=== PATIENT | female | born 1960 | race Two or more races ===

== ENCOUNTER → 2017-09-06 | Outpatient (CLI) | payer OTHER | END | disposition home or self-care (01) | LOC: HKI 13:57 | DX: M17.11 Unilateral primary osteoarthritis, right knee (principal) | CPT/HCPCS: 73564; 73564-RT ==

== ENCOUNTER → 2017-10-04 | Outpatient (CLI) | payer OTHER | END | disposition home or self-care (01) | LOC: HKI 14:54 | DX: M19.031 Primary osteoarthritis, right wrist (principal) | CPT/HCPCS: 20610 ==

== ENCOUNTER → 2018-01-24 | Outpatient (CLI) | payer OTHER | END | disposition home or self-care (01) | LOC: HKI 13:22 | DX: M17.11 Unilateral primary osteoarthritis, right knee (principal) | CPT/HCPCS: Z7500 ==

== ENCOUNTER → 2018-02-05 | Outpatient (CLI) | payer OTHER | END | disposition home or self-care (01) | LOC: HKI 13:26 | DX: M17.11 Unilateral primary osteoarthritis, right knee (principal) | CPT/HCPCS: 20610 ==

== ENCOUNTER → 2018-06-20 | Outpatient (CLI) | payer OTHER | END | disposition home or self-care (01) | LOC: HKI 15:17 | DX: M25.561 Pain in right knee (principal) | CPT/HCPCS: 73502; 73564-50 ==

== ENCOUNTER → 2018-07-05 | Outpatient (CLI) | payer OTHER | END | disposition home or self-care (01) | LOC: HKI 14:38 | DX: M16.11 Unilateral primary osteoarthritis, right hip (principal) | CPT/HCPCS: G0463 ==

== ENCOUNTER 2018-07-11 07:19 | Day surgery (SDC) | payer OTHER ==
[2018-07-11] MEDS ORDERED: PROPOFOL 20 ML (09:16)
[2018-07-11] MEDS ORDERED: FENTAnyl 50 MCG/ML VIAL (09:16)
== END 2018-07-11 12:31 | disposition home or self-care (01) ==
LOC: GIL 07:19
DX: Z12.11 Encounter for screening for malignant neoplasm of colon (principal); K29.50 Unspecified chronic gastritis without bleeding; K20.8 Other esophagitis; K57.30 Diverticulosis of large intestine without perforation or abscess without bleeding
CPT/HCPCS: 43239; 88305; 88312

== ENCOUNTER → 2018-08-12 | Outpatient (CLI) | payer OTHER | END | disposition home or self-care (01) | LOC: HKI 10:01 | DX: Z01.818 Encounter for other preprocedural examination (principal); M16.11 Unilateral primary osteoarthritis, right hip | CPT/HCPCS: 73502 ==

== ENCOUNTER 2018-08-20 05:26 | Inpatient (IN) | payer OTHER ==
[2018-08-20] MEDS ORDERED: ACETAMINOPHEN 500 MG TAB PO (06:30)
[2018-08-20] MEDS: CELECOXIB 200 MG CAP PO (06:42)
[2018-08-20] MEDS: ONDANSETRON 4 MG INJ IV ×2 (06:42→19:21)
[2018-08-20] MEDS: LANSOPRAZOLE 30 MG CAP PO (06:42)
[2018-08-20] MEDS: ACETAMINOPHEN 1000MG/100ML IV 100 ML IVPB (06:43)
[2018-08-20] MEDS: LACTATED RINGER'S 1,000 ML IV* (06:43)
[2018-08-20] MEDS ORDERED: GLYCOPYRROLATE 0.4 MG INJ (07:00)
[2018-08-20] MEDS ORDERED: DESFLURANE 15 MIN (07:00)
[2018-08-20] MEDS ORDERED: morphine SULFATE/PF (10 MG/10 ML) INJ (07:42)
[2018-08-20] MEDS ORDERED: MIDAZOLAM 1 MG/ML 2 ML INJ (07:43)
[2018-08-20] MEDS ORDERED: DIPHENHYDRAMINE 50 MG INJ IV ×2 (08:00→11:30)
[2018-08-20] MEDS ORDERED: HYDROmorphONE 1 MG/5 ML IV SYRINGE IV ×2 (08:00)
[2018-08-20] MEDS ORDERED: METOCLOPRAMIDE 10 MG INJ IV (08:00)
[2018-08-20] MEDS ORDERED: FENTAnyl 50 MCG/ML VIAL IV ×2 (08:00)
[2018-08-20] MEDS ORDERED: ALBUTEROL 0.083% (NEB) 2.5 MG/3 ML AMP HHN (08:00)
[2018-08-20] MEDS ORDERED: MEPERIDINE 25 MG INJ IV (08:00)
[2018-08-20] MEDS ORDERED: ONDANSETRON 4 MG INJ IV (08:00)
[2018-08-20] MEDS ORDERED: PHENYLephrine 10 MG INJ (08:09)
[2018-08-20] MEDS ORDERED: PROPOFOL 20 ML (08:38)
[2018-08-20] MEDS ORDERED: CEFAZOLIN 1 GM INJ (08:38)
[2018-08-20] MEDS ORDERED: ROCURONIUM 50 MG INJ (08:38)
[2018-08-20] MEDS ORDERED: SUCCINYLCHOLINE CHLORIDE 100 MG/5 ML SYG IV (08:38)
[2018-08-20] MEDS ORDERED: LIDOCAINE 100 MG SYRINGE (08:39)
[2018-08-20] MEDS ORDERED: FENTAnyl 50 MCG/ML VIAL (08:43)
[2018-08-20] MEDS: POLYMYXIN/BACITRACIN 1L IRRIG (08:59)
[2018-08-20] MEDS: BACITRACIN 50000 UNITS INJ (08:59)
[2018-08-20] MEDS: VANCOMYCIN 1 GM INJ (09:00)
[2018-08-20] MEDS: TOBRAMYCIN 1.2 GM POWDER (09:00)
[2018-08-20] MEDS ORDERED: LACTATED RINGER'S 1,000 ML IV (11:17)
[2018-08-20] MEDS ORDERED: oxyCODONE 5 MG TAB PO ×2 (11:30)
[2018-08-20] MEDS ORDERED: NACL 0.9% 3 ML SYG IV (11:30)
[2018-08-20] MEDS: DOCUSATE SODIUM 100 MG CAP PO (11:30)
[2018-08-20] MEDS ORDERED: NA PHOSPHATE/BIPHOS 133 ML ENEMA PR (11:30)
[2018-08-20] MEDS ORDERED: NALOXONE (0.4 MG/ML) INJ IV (11:30)
[2018-08-20] MEDS ORDERED: BISACODYL 10 MG SUPP PR (11:30)
[2018-08-20] MEDS: HYDROmorphONE 1 MG/5 ML IV SYRINGE IV (11:59)
[2018-08-20] MEDS: CEFAZOLIN 2 GM/50 ML (PMX) 50 ML IVPB ×3 (12:37→23:40)
[2018-08-20] MEDS ORDERED: ALBUMIN HUMAN 5% 250 ML (12:56)
[2018-08-20] MEDS: ALBUMIN HUMAN 5% 250 ML IV (13:15)
[2018-08-20] MEDS: EPHEDrine SULFATE 50 MG/5 ML SYG IV (13:21)
[2018-08-20] MEDS ORDERED: ALBUMIN HUMAN 5% 250 ML IV (13:30)
[2018-08-20] MEDS ORDERED: PHENYLephrine 20MG IN 250 ML 250 ML IV (15:00)
[2018-08-20] MEDS ORDERED: PANTOPRAZOLE (EC) 40 MG TAB PO (15:16)
[2018-08-20] MEDS ORDERED: NEOSTIGMINE 3 MG/3 ML SYRINGE (15:46)
[2018-08-20 16:32] LABS: CREATINE KINASE 300 IU/L (23-200)
[2018-08-20 16:45] LABS: CK INDEX 1.2; TROPONIN-I < 0.012 ng/ml (0.000-0.120)
[2018-08-20] MEDS: SOD CHLORIDE 0.9% 1,000 ML IV (17:15)
[2018-08-20] MEDS: TRANEXAMIC ACID 1GM/100ML(PMX) 100 ML PRE-OP IVPB (19:30)
[2018-08-20] MEDS: TRANEXAMIC ACID 1GM/100ML(PMX) 100 ML AT CLOSING IVPB (19:30)
[2018-08-20] MEDS: GABAPENTIN 300 MG CAP PO (20:42)
[2018-08-21] MEDS: SOD CHLORIDE 0.9% 1,000 ML IV ×2 (03:31→12:22)
[2018-08-21 05:56] LABS: ADD MAN DIFF? NO
[2018-08-21 05:58] LABS: BASOPHILS % 0.3 % (0.0-2.0); EOSINOPHILS # 0.1 10^3/ul (0.0-0.5); EOSINOPHILS % 0.7 % (0.0-7.0); HEMATOCRIT 26.6 % (37.0-47.0); HEMOGLOBIN 8.7 g/dl (12.0-16.0); LYMPHOCYTES # 1.8 10^3/ul (0.8-2.9); MEAN CORPUSCULAR HGB CONC 32.7 g/dl (32.0-37.0); MEAN CORPUSCULAR VOLUME 91.7 fl (82.0-101.0); MEAN PLATELET VOLUME 9.2 fl (7.4-10.4); MONOCYTE # 0.5 10^3/ul (0.3-0.9); MONOCYTES % 7.3 % (0.0-11.0); NEUTROPHIL # 4.9 10^3/ul (1.6-7.5); NEUTROPHILS % 66.3 % (39.0-77.0); PLATELET COUNT 154 10^3/UL (140-415); RED CELL DISTRIBUTION WIDTH 12.5 % (11.5-14.5)
[2018-08-21 05:58] LABS: WHITE BLOOD COUNT 7.4 10^3/ul (4.8-10.8)
[2018-08-21 06:19] LABS: INR 1.17; PT RATIO 1.2
[2018-08-21 06:29] LABS: CHOL/HDL RATIO 3.3 RATIO; HDL CHOLESTEROL 40 mg/dl (37-92); LDL CHOLESTEROL,CALCULATED 67 mg/dl; TRIGLYCERIDES 124 mg/dl (0-149)
[2018-08-21 06:29] LABS: CHOLESTEROL 132 mg/dl (100-200)
[2018-08-21 06:31] LABS: ANION GAP 1 (5-13); BLOOD UREA NITROGEN 12 mg/dl (7-20); CARBON DIOXIDE 30 mmol/L (21-31); CHLORIDE 107 mmol/L (97-110); CREATININE 0.74 mg/dl (0.44-1.00); Estimated GFR > 60 mL/min (>60); GLUCOSE 91 mg/dl (70-220); POTASSIUM 3.8 mmol/L (3.5-5.1); SODIUM 138 mmol/L (135-144)
[2018-08-21] MEDS: CEFAZOLIN 2 GM/50 ML (PMX) 50 ML IVPB (06:41)
[2018-08-21] MEDS: PANTOPRAZOLE (EC) 40 MG TAB PO (06:41)
[2018-08-21 06:57] LABS: THYROID STIMULATING HORMONE 0.585 MIU/L (0.465-4.680)
[2018-08-21 07:00] LABS: HEMOGLOBIN A1C 5.5 % (0-5.9)
[2018-08-21] MEDS: DOCUSATE SODIUM 100 MG CAP PO ×2 (09:38→20:39)
[2018-08-21] MEDS: ASPIRIN (EC) 81 MG TAB PO ×2 (09:38→20:39)
[2018-08-21] MEDS ORDERED: ONDANSETRON 4 MG INJ IV (11:30)
[2018-08-21] MEDS: oxyCODONE 5 MG TAB PO (12:18)
[2018-08-21] MEDS: ACETAMINOPHEN 500 MG TAB PO ×2 (14:27→20:39)
[2018-08-21] MEDS: KETOROLAC 15 MG INJ IV (14:30)
[2018-08-21] MEDS: GABAPENTIN 300 MG CAP PO (20:39)
[2018-08-21] MEDS: HYDROmorphONE 1 MG/ML SYG IV (23:30)
[2018-08-22] MEDS: ONDANSETRON 4 MG INJ IV (00:01)
[2018-08-22] MEDS: BETHANECHOL 25 MG TAB PO (00:54)
[2018-08-22] MEDS: ACETAMINOPHEN 500 MG TAB PO ×2 (05:41→18:49)
[2018-08-22] MEDS: PANTOPRAZOLE (EC) 40 MG TAB PO (05:41)
[2018-08-22 06:46] LABS: ADD MAN DIFF? NO
[2018-08-22 06:50] LABS: WHITE BLOOD COUNT 7.9 10^3/ul (4.8-10.8)
[2018-08-22 06:50] LABS: BASOPHILS % 0.3 % (0.0-2.0); EOSINOPHILS # 0.1 10^3/ul (0.0-0.5); EOSINOPHILS % 0.6 % (0.0-7.0); HEMATOCRIT 27.3 % (37.0-47.0); HEMOGLOBIN 8.6 g/dl (12.0-16.0); LYMPHOCYTES # 1.2 10^3/ul (0.8-2.9); LYMPHOCYTES % 15.7 % (15.0-51.0); MEAN CORPUSCULAR HEMOGLOBIN 29.1 pg (29.0-33.0); MEAN CORPUSCULAR HGB CONC 31.5 g/dl (32.0-37.0); MEAN CORPUSCULAR VOLUME 92.2 fl (82.0-101.0); MONOCYTE # 0.6 10^3/ul (0.3-0.9); MONOCYTES % 7.2 % (0.0-11.0); NEUTROPHILS % 75.6 % (39.0-77.0); PLATELET COUNT 154 10^3/UL (140-415); RED BLOOD COUNT 2.96 10^6/ul (4.20-5.40); RED CELL DISTRIBUTION WIDTH 12.8 % (11.5-14.5)
[2018-08-22 07:09] LABS: INR 1.02; PROTIME 13.5 Sec (11.9-14.9); PT RATIO 1.1
[2018-08-22 07:20] LABS: ANION GAP 6 (5-13); BLOOD UREA NITROGEN 10 mg/dl (7-20); CALCIUM 8.8 mg/dl (8.4-10.2); CARBON DIOXIDE 28 mmol/L (21-31); CHLORIDE 106 mmol/L (97-110); Estimated GFR > 60 mL/min (>60); GLUCOSE 148 mg/dl (70-220); MAGNESIUM 1.9 mg/dl (1.7-2.5); POTASSIUM 3.7 mmol/L (3.5-5.1); SODIUM 140 mmol/L (135-144)
[2018-08-22 07:20] LABS: PHOSPHORUS 3.4 mg/dl (2.5-4.9)
[2018-08-22 07:30] LABS: ADD UMIC YES; UR ASCORBIC ACID NEGATIVE (NEGATIVE); UR BACTERIA MODERATE /HPF (NONE SEEN); UR BILIRUBIN (Dip) NEGATIVE (NEGATIVE); UR BLOOD (Dip) NEGATIVE (NEGATIVE); UR CLARITY CLOUDY (CLEAR); UR COLOR YELLOW (YELLOW); UR GLUCOSE (Dip) NEGATIVE (NEGATIVE); UR KETONES (Dip) NEGATIVE (NEGATIVE); UR LEUKOCYTE ESTERASE (Dip) 3+ Leu/ul (NEGATIVE); UR MUCUS FEW /HPF (NONE SEEN); UR NITRITE (Dip) NEGATIVE (NEGATIVE); UR RBC 3 /HPF (0-5); UR SPECIFIC GRAVITY (Dip) 1.019 (1.003-1.030); UR SQUAMOUS EPITHELIAL CELL MANY /HPF (FEW); UR TOTAL PROTEIN (Dip) NEGATIVE (NEGATIVE); UR UROBILINOGEN (Dip) NEGATIVE (NEGATIVE); UR WBC > 182 /HPF (0-5)
[2018-08-22] MEDS: DOCUSATE SODIUM 100 MG CAP PO ×2 (08:40→20:15)
[2018-08-22] MEDS: ASPIRIN (EC) 81 MG TAB PO ×2 (08:40→20:15)
[2018-08-22] MEDS: CEFTRIAXONE 1 GM/50 ML (PMX) 50 ML IVPB (10:03)
[2018-08-22] MEDS: GABAPENTIN 300 MG CAP PO (20:15)
[2018-08-23 01:08] LABS: ADD UMIC NO; UR ASCORBIC ACID NEGATIVE (NEGATIVE); UR BILIRUBIN (Dip) NEGATIVE (NEGATIVE); UR BLOOD (Dip) NEGATIVE (NEGATIVE); UR CLARITY CLEAR (CLEAR); UR COLOR YELLOW (YELLOW); UR GLUCOSE (Dip) NEGATIVE (NEGATIVE); UR KETONES (Dip) NEGATIVE (NEGATIVE); UR LEUKOCYTE ESTERASE (Dip) NEGATIVE Leu/ul (NEGATIVE); UR NITRITE (Dip) NEGATIVE (NEGATIVE); UR SPECIFIC GRAVITY (Dip) 1.009 (1.003-1.030); UR TOTAL PROTEIN (Dip) NEGATIVE (NEGATIVE); UR UROBILINOGEN (Dip) NEGATIVE (NEGATIVE)
[2018-08-23] MEDS: PANTOPRAZOLE (EC) 40 MG TAB PO (06:10)
[2018-08-23 06:12] LABS: ADD MAN DIFF? NO
[2018-08-23 06:23] LABS: BASOPHILS % 0.3 % (0.0-2.0); EOSINOPHILS # 0.2 10^3/ul (0.0-0.5); EOSINOPHILS % 2.3 % (0.0-7.0); HEMATOCRIT 26.9 % (37.0-47.0); HEMOGLOBIN 8.9 g/dl (12.0-16.0); LYMPHOCYTES # 2.1 10^3/ul (0.8-2.9); LYMPHOCYTES % 24.6 % (15.0-51.0); MEAN CORPUSCULAR HEMOGLOBIN 30.2 pg (29.0-33.0); MEAN CORPUSCULAR HGB CONC 33.1 g/dl (32.0-37.0); MEAN CORPUSCULAR VOLUME 91.2 fl (82.0-101.0); MONOCYTE # 0.6 10^3/ul (0.3-0.9); MONOCYTES % 6.7 % (0.0-11.0); NEUTROPHIL # 5.7 10^3/ul (1.6-7.5); NEUTROPHILS % 65.4 % (39.0-77.0); PLATELET COUNT 185 10^3/UL (140-415); RED BLOOD COUNT 2.95 10^6/ul (4.20-5.40); RED CELL DISTRIBUTION WIDTH 12.8 % (11.5-14.5)
[2018-08-23 06:23] LABS: WHITE BLOOD COUNT 8.7 10^3/ul (4.8-10.8)
[2018-08-23 06:37] LABS: INR 1.07; PT RATIO 1.1
[2018-08-23 07:06] LABS: ANION GAP 3 (5-13); BLOOD UREA NITROGEN 8 mg/dl (7-20); CALCIUM 8.9 mg/dl (8.4-10.2); CARBON DIOXIDE 32 mmol/L (21-31); CHLORIDE 105 mmol/L (97-110); Estimated GFR > 60 mL/min (>60); GLUCOSE 97 mg/dl (70-220); POTASSIUM 3.4 mmol/L (3.5-5.1); SODIUM 140 mmol/L (135-144)
[2018-08-23] MEDS: ASPIRIN (EC) 81 MG TAB PO ×2 (09:05→20:34)
[2018-08-23] MEDS: CEFTRIAXONE 1 GM/50 ML (PMX) 50 ML IVPB (09:06)
[2018-08-23] MEDS: DOCUSATE SODIUM 100 MG CAP PO ×2 (09:06→20:33)
[2018-08-23] MEDS: POTASSIUM CHLORIDE (SR) 20 MEQ TAB PO (16:29)
[2018-08-23] MEDS: MAGNESIUM HYDROXIDE 30ML CUP PO (17:00)
[2018-08-23] MEDS: SENNA/DOCUSATE NA (8.6MG/50MG) TAB PO (20:33)
[2018-08-23] MEDS: GABAPENTIN 300 MG CAP PO (20:34)
[2018-08-24 05:27] LABS: ADD MAN DIFF? NO
[2018-08-24 05:31] LABS: BASOPHILS % 0.4 % (0.0-2.0); EOSINOPHILS # 0.2 10^3/ul (0.0-0.5); EOSINOPHILS % 2.2 % (0.0-7.0); HEMATOCRIT 27.4 % (37.0-47.0); LYMPHOCYTES # 2.7 10^3/ul (0.8-2.9); LYMPHOCYTES % 29.1 % (15.0-51.0); MEAN CORPUSCULAR HGB CONC 32.8 g/dl (32.0-37.0); MEAN CORPUSCULAR VOLUME 91.3 fl (82.0-101.0); MEAN PLATELET VOLUME 9.6 fl (7.4-10.4); MONOCYTE # 0.7 10^3/ul (0.3-0.9); MONOCYTES % 7.6 % (0.0-11.0); NEUTROPHIL # 5.6 10^3/ul (1.6-7.5); NEUTROPHILS % 60.2 % (39.0-77.0); PLATELET COUNT 232 10^3/UL (140-415); RED CELL DISTRIBUTION WIDTH 12.8 % (11.5-14.5)
[2018-08-24 05:31] LABS: WHITE BLOOD COUNT 9.3 10^3/ul (4.8-10.8)
[2018-08-24 05:51] LABS: INR 1.03; PROTIME 13.6 Sec (11.9-14.9); PT RATIO 1.1
[2018-08-24 05:54] LABS: ANION GAP 6 (5-13); BLOOD UREA NITROGEN 9 mg/dl (7-20); CALCIUM 9.2 mg/dl (8.4-10.2); CARBON DIOXIDE 29 mmol/L (21-31); CHLORIDE 102 mmol/L (97-110); CREATININE 0.68 mg/dl (0.44-1.00); Estimated GFR > 60 mL/min (>60); GLUCOSE 110 mg/dl (70-220); POTASSIUM 3.8 mmol/L (3.5-5.1); SODIUM 137 mmol/L (135-144)
[2018-08-24] MEDS: PANTOPRAZOLE (EC) 40 MG TAB PO (06:28)
[2018-08-24] MEDS: ASPIRIN (EC) 81 MG TAB PO (08:57)
[2018-08-24] MEDS: ACETAMINOPHEN 500 MG TAB PO (08:57)
[2018-08-24] MEDS: CEFTRIAXONE 1 GM/50 ML (PMX) 50 ML IVPB (10:41)
== END 2018-08-24 15:10 | disposition home health service (06) | DRG 470 ==
LOC: REC 05:26 → TEL 16:54 → MS1 08-22 18:28
PROC: 0SR904Z Replacement of Right Hip Joint with Ceramic on Polyethylene Synthetic Substitute, Open Approach (ICD-10-PCS; principal; 2018-08-20 07:30)
DX: M16.51 Unilateral post-traumatic osteoarthritis, right hip (principal); N39.0 Urinary tract infection, site not specified; I95.1 Orthostatic hypotension; E66.9 Obesity, unspecified; E87.6 Hypokalemia; Z68.36 Body mass index [BMI] 36.0-36.9, adult
CPT/HCPCS: 71045; 72170; 73500; 73530; 76775; 80048; 80061; 81001; 81003; 82550; 82553; 83036; 83735; 84100; 84443; 84484; 85025; 85610; 86850; 86900; 86901; 87081; 87086; 88304; 88311; 90686; 93005; 97110; 97116; 97161; 97165; 97530; 97535

== ENCOUNTER → 2018-09-02 | Outpatient (CLI) | payer OTHER | END | disposition home or self-care (01) | LOC: HKI 13:21 | DX: M25.551 Pain in right hip (principal); M25.561 Pain in right knee; Z96.641 Presence of right artificial hip joint | CPT/HCPCS: 73502 ==

== ENCOUNTER → 2018-09-30 | Outpatient (CLI) | payer OTHER | END | disposition home or self-care (01) | LOC: HKI 13:15 | DX: Z09 Encounter for follow-up examination after completed treatment for conditions other than malignant neoplasm (principal); R53.1 Weakness; Z96.641 Presence of right artificial hip joint | CPT/HCPCS: 73502 ==

== ENCOUNTER → 2018-10-02 | Outpatient (CLI) | payer OTHER | END | disposition home or self-care (01) | LOC: HKI 11:00 | DX: Z09 Encounter for follow-up examination after completed treatment for conditions other than malignant neoplasm (principal); Z96.641 Presence of right artificial hip joint | CPT/HCPCS: 72100 ==

== ENCOUNTER → 2018-11-11 | Outpatient (CLI) | payer OTHER | END | disposition home or self-care (01) | LOC: HKI 14:04 | DX: Z47.89 Encounter for other orthopedic aftercare (principal); Z96.641 Presence of right artificial hip joint | CPT/HCPCS: 73502 ==

== ENCOUNTER 2018-11-22 18:45 | Emergency (ER) | payer OTHER ==
[2018-11-22] MEDS: HYDROCODONE/APAP (10/325) TAB PO (20:30)
[2018-11-22] MEDS: LORAZEPAM 1 MG TAB PO (22:42)
[2018-11-22] MEDS: NICARDipine HCL 30 MG CAPSULE PO (22:42)
[2018-11-22 22:56] LABS: ADD MAN DIFF? NO
[2018-11-22 22:59] LABS: BASOPHILS % 0.4 % (0.0-2.0); EOSINOPHILS # 0.1 10^3/ul (0.0-0.5); EOSINOPHILS % 0.6 % (0.0-7.0); HEMOGLOBIN 13.2 g/dl (12.0-16.0); LYMPHOCYTES # 3.7 10^3/ul (0.8-2.9); LYMPHOCYTES % 33.2 % (15.0-51.0); MEAN CORPUSCULAR HEMOGLOBIN 26.6 pg (29.0-33.0); MEAN CORPUSCULAR HGB CONC 32.2 g/dl (32.0-37.0); MEAN CORPUSCULAR VOLUME 82.5 fl (82.0-101.0); MEAN PLATELET VOLUME 9.3 fl (7.4-10.4); MONOCYTE # 0.6 10^3/ul (0.3-0.9); MONOCYTES % 5.6 % (0.0-11.0); NEUTROPHIL # 6.7 10^3/ul (1.6-7.5); NEUTROPHILS % 59.8 % (39.0-77.0); PLATELET COUNT 261 10^3/UL (140-415); RED BLOOD COUNT 4.97 10^6/ul (4.20-5.40); RED CELL DISTRIBUTION WIDTH 13.9 % (11.5-14.5)
[2018-11-22 22:59] LABS: WHITE BLOOD COUNT 11.2 10^3/ul (4.8-10.8)
[2018-11-22 23:17] LABS: ALANINE AMINOTRANSFERASE 23 IU/L (13-69); ALBUMIN 4.6 g/dl (3.3-4.9); ALBUMIN/GLOBULIN RATIO 1.27; ALKALINE PHOSPHATASE 107 IU/L (42-121); ANION GAP 12 (5-13); ASPARTATE AMINO TRANSFERASE 34 IU/L (15-46); BILIRUBIN,INDIRECT 0.5 mg/dl (0-1.1); BILIRUBIN,TOTAL 0.5 mg/dl (0.2-1.3); BLOOD UREA NITROGEN 12 mg/dl (7-20); CALCIUM 9.7 mg/dl (8.4-10.2); CARBON DIOXIDE 23 mmol/L (21-31); CHLORIDE 105 mmol/L (97-110); CREATININE 0.74 mg/dl (0.44-1.00); Estimated GFR > 60 mL/min (>60); GLUCOSE 98 mg/dl (70-220); POTASSIUM 3.3 mmol/L (3.5-5.1); SODIUM 140 mmol/L (135-144); TOTAL PROTEIN 8.2 g/dl (6.1-8.1)
[2018-11-22 23:24] LABS: B-TYPE NATRIURETIC PEPTIDE 210 PG/ML (0-125)
[2018-11-22 23:25] LABS: INR 0.92; PROTIME 12.5 Sec (11.9-14.9)
[2018-11-22 23:26] LABS: PARTIAL THROMBOPLASTIN TIME 31.7 Sec (23.0-35.0)
[2018-11-22 23:27] LABS: TROPONIN-I < 0.012 ng/ml (0.000-0.120)
[2018-11-23] MEDS: ONDANSETRON (ODT) 4 MG TAB ODT (00:21)
[2018-11-23] MEDS: POTASSIUM CHLORIDE (SR) 20 MEQ TAB PO (00:22)
== END 2018-11-23 00:36 | disposition home or self-care (01) ==
LOC: FTE 11-23 00:36
DX: I10 Essential (primary) hypertension (principal); E66.9 Obesity, unspecified; Z68.35 Body mass index [BMI] 35.0-35.9, adult
CPT/HCPCS: 70450; 71046; 80053; 83880; 84484; 85025; 85610; 85730; 93005; 99285-25